=== PATIENT | female | born 1940 | race Asian ===

== ENCOUNTER 2022-12-29 16:26 | Inpatient (IN) | payer OTHER ==
[~2022-12-29] VITALS: Ht 154.9 cm; Wt 49.9 kg
[2022-12-29 16:26] VITALS: BP_SYST 121; PULSE 89; RESP 18; TEMP 98.2; O2SAT 99
[2022-12-29] MEDS ORDERED: LORazepam 2 MG/ML VIAL IM ONE (17:15)
[2022-12-29 17:31] LABS: BASOPHILS % (AUTO) 0.2 % (0.0-2.0); EOSINOPHILS # (AUTO) 0.2 K/uL (0.0-0.4); EOSINOPHILS % (AUTO) 3.3 % (0.0-4.0); HEMATOCRIT 36.2 % (36-48); HEMOGLOBIN 12.2 g/dL (12.0-16.0); LYMPHOCYTES # (AUTO) 2.1 K/uL (1.0-5.5); MEAN CORPUSCULAR HEMOGLOBIN 31 pg (27-31); MEAN CORPUSCULAR HGB CONC 34 % (32-36); MEAN CORPUSCULAR VOLUME 92 fL (79.0-98.0); MONOCYTES # (AUTO) 0.6 K/uL (0.0-1.0); NEUTROPHILS # (AUTO) 4.2 K/uL (1.8-7.7); NEUTROPHILS % (AUTO) 58.5 % (40.0-70.0); PLATELET COUNT (AUTO) 254 K/uL (130-430); RED BLOOD CELL COUNT(AUTO) 3.92 MIL/uL (4.2-6.2); RED CELL DISTRIBUTION WIDTH 13.4 % (9.0-15.0); WHITE BLOOD COUNT (AUTO) 7.1 K/uL (4.8-10.8)
[2022-12-29] MEDS ORDERED: INSU100V53 SQ (17:34)
[2022-12-29] MEDS ORDERED: MAGN200T9 PO (17:34)
[2022-12-29] MEDS ORDERED: ACET-73 PO (17:34)
[2022-12-29] MEDS ORDERED: INSU100V7 SUBCUT (17:34)
[2022-12-29] MEDS ORDERED: FLEETMO RC (17:34)
[2022-12-29] MEDS ORDERED: LACT1TAB14 PO (17:34)
[2022-12-29] MEDS ORDERED: LORA-258 PO (17:34)
[2022-12-29] MEDS ORDERED: DONE10TA44 PO (17:34)
[2022-12-29] MEDS ORDERED: ONDA-8 TL (17:34)
[2022-12-29] MEDS ORDERED: GLUC1VIA4 IM (17:34)
[2022-12-29] MEDS ORDERED: GLUCOSE PO (17:34)
[2022-12-29] MEDS ORDERED: MOM PO (17:34)
[2022-12-29] MEDS ORDERED: ASCO500T20 PO (17:34)
[2022-12-29] MEDS ORDERED: BISACODYL PR (17:34)
[2022-12-29] MEDS ORDERED: MULT-1089 PO (17:34)
[2022-12-29] MEDS ORDERED: AMIN30LI2 PO (17:34)
[2022-12-29] MEDS ORDERED: VITD400 PO (17:34)
[2022-12-29] MEDS ORDERED: DOCU-156 PO (17:34)
[2022-12-29 17:38] LABS: ANION GAP 9 (5-15); CALCIUM 8.5 mg/dL (8.4-11.0); CHLORIDE 106 mmol/L (98-107); CREATININE 0.87 mg/dL (0.55-1.30); GLUCOSE 84 mg/dL (70-99); UREA NITROGEN, BLOOD 27 mg/dL (8-21)
[2022-12-29 17:45] LABS: ALANINE AMINOTRANSFERASE 18 U/L (12-78); ASPARTATE AMINOTRANSFERASE 17 U/L (10-37); TOTAL BILIRUBIN 0.3 mg/dL (0.0-1.0)
[2022-12-29] MEDS ORDERED: cefTRIAXone 1 GM IVPB PREMIX 50 ML IV ONE (18:15)
[2022-12-29 20:00] VITALS: BP_SYST 141; PULSE 87; RESP 18; TEMP 97.1; O2SAT 98
[2022-12-29 21:48] VITALS: BP_SYST 141; PULSE 87; RESP 18; TEMP 97.1
[2022-12-29 22:14] VITALS: O2SAT 98
[2022-12-29] MEDS ORDERED: ACETAMINOPHEN 500 MG TABLET PO PRN ×2 (22:30)
[2022-12-29] MEDS ORDERED: MILK OF MAGNESIA 30 ML UDC PO PRN (22:30)
[2022-12-29] MEDS ORDERED: MINERAL OIL 133 ML ENEMA RC PRN (22:30)
[2022-12-29] MEDS ORDERED: LORazepam 1 MG TABLET PO PRN (22:30)
[2022-12-29] MEDS ORDERED: INSULIN REGULAR, HUMAN 100 UNITS/ML, 3 ML VIAL (humuLIN R) SUBCUT PRN (22:45)
[2022-12-29] MEDS ORDERED: GLUCAGON,HUMAN RECOMBINANT 1 MG VIAL IM PRN (22:45)
[2022-12-29] MEDS ORDERED: AZITHROMYCIN 500 MG/VIAL (ZITHROMAX) IV ONE (22:58)
[2022-12-29] MEDS: AZITHROMYCIN 500 MG in NS 250 ML IV SCH (23:22)
[2022-12-30 00:46] VITALS: BP_SYST 151; PULSE 95; RESP 17; TEMP 96.5; O2SAT 99
[2022-12-30 05:59] LABS: BASOPHILS % (AUTO) 0.4 % (0.0-2.0); EOSINOPHILS # (AUTO) 0.2 K/uL (0.0-0.4); EOSINOPHILS % (AUTO) 2.7 % (0.0-4.0); HEMATOCRIT 36.2 % (36-48); LYMPHOCYTES # (AUTO) 2.1 K/uL (1.0-5.5); LYMPHOCYTES % (AUTO) 31.4 % (20.5-51.5); MEAN CORPUSCULAR HEMOGLOBIN 31 pg (27-31); MEAN CORPUSCULAR HGB CONC 33 % (32-36); MEAN CORPUSCULAR VOLUME 93 fL (79.0-98.0); MONOCYTES # (AUTO) 0.4 K/uL (0.0-1.0); MONOCYTES % (AUTO) 6.1 % (1.7-9.3); NEUTROPHILS % (AUTO) 59.4 % (40.0-70.0); PLATELET COUNT (AUTO) 253 K/uL (130-430); RED CELL DISTRIBUTION WIDTH 13.3 % (9.0-15.0); WHITE BLOOD COUNT (AUTO) 6.7 K/uL (4.8-10.8)
[2022-12-30 06:16] LABS: ANION GAP 8 (5-15); CHLORIDE 109 mmol/L (98-107); CREATININE 0.81 mg/dL (0.55-1.30); GLUCOSE 96 mg/dL (70-99); UREA NITROGEN, BLOOD 20 mg/dL (8-21)
[2022-12-30 06:21] LABS: ALANINE AMINOTRANSFERASE 16 U/L (12-78); ASPARTATE AMINOTRANSFERASE 18 U/L (10-37); TOTAL BILIRUBIN 0.5 mg/dL (0.0-1.0)
[2022-12-30] MEDS ORDERED: NON-FORMULARY MEDICATION (Amino Acids/Protein Hydrolys (Pro-Stat Liquid) 30 ML) PO SCH (09:00)
[2022-12-30 11:14] VITALS: BP_SYST 135; PULSE 69; RESP 16; TEMP 98.1; O2SAT 96
[2022-12-30] MEDS: DOCUSATE SODIUM 100 MG CAPSULE PO SCH (11:59)
[2022-12-30] MEDS: CHOLECALCIFEROL (VITAMIN D-3) 400 UNIT TABLET PO SCH (11:59)
[2022-12-30] MEDS: MULTIVITAMINS TAB 1 TABLET PO SCH (11:59)
[2022-12-30] MEDS: LACTOBACILLUS RHAMNOSUS GG 1 CAP CAPSULE PO SCH ×2 (11:59→21:46)
[2022-12-30] MEDS: ASCORBIC ACID 500 MG TABLET PO SCH (11:59)
[2022-12-30] MEDS: METOPROLOL TARTRATE 25 MG TABLET PO SCH ×2 (12:00→21:46)
[2022-12-30] MEDS: ASPIRIN 81 MG TAB.CHEW PO SCH (12:00)
[2022-12-30] MEDS: MAGNESIUM OXIDE 400 MG TABLET PO SCH (12:01)
[2022-12-30] MEDS: INSULIN GLARGINE 100 UNITS/ML, 10 ML VIAL SQ SCH ×2 (12:06→21:50)
[2022-12-30 12:42] VITALS: O2SAT 100
[2022-12-30 15:01] VITALS: BP_SYST 140; PULSE 83; RESP 16; TEMP 97.2; O2SAT 93
[2022-12-30 20:00] VITALS: BP_SYST 115; PULSE 90; RESP 18; TEMP 97.1; O2SAT 98
[2022-12-30] MEDS ORDERED: DONEPEZIL HCL 5 MG TABLET (ARICEPT) PO SCH (21:00)
[2022-12-30] MEDS ORDERED: ENOXAPARIN SODIUM 40 MG/0.4 ML SYRINGE SUBCUT SCH (21:00)
[2022-12-30] MEDS ORDERED: cefTRIAXone 1 GM in D5W 50 ML IV SCH (21:00)
[2022-12-30] MEDS: AZITHROMYCIN 500 MG in NS 250 ML IV SCH (22:59)
[2022-12-31 00:32] VITALS: BP_SYST 116; PULSE 81; RESP 16; TEMP 97.7; O2SAT 98
[2022-12-31 08:00] VITALS: BP_SYST 118; PULSE 63; RESP 18; TEMP 97.1; O2SAT 93
[2022-12-31] MEDS: INSULIN GLARGINE 100 UNITS/ML, 10 ML VIAL SQ SCH (09:00)
[2022-12-31] MEDS: MAGNESIUM OXIDE 400 MG TABLET PO SCH (09:22)
[2022-12-31] MEDS: LACTOBACILLUS RHAMNOSUS GG 1 CAP CAPSULE PO SCH (09:22)
[2022-12-31] MEDS: METOPROLOL TARTRATE 25 MG TABLET PO SCH (09:23)
[2022-12-31] MEDS: ASCORBIC ACID 500 MG TABLET PO SCH (09:23)
[2022-12-31] MEDS: ASPIRIN 81 MG TAB.CHEW PO SCH (09:23)
[2022-12-31] MEDS: DOCUSATE SODIUM 100 MG CAPSULE PO SCH (09:23)
[2022-12-31] MEDS: CHOLECALCIFEROL (VITAMIN D-3) 400 UNIT TABLET PO SCH (09:23)
[2022-12-31] MEDS: MULTIVITAMINS TAB 1 TABLET PO SCH (09:23)
[2022-12-31 11:23] VITALS: BP_SYST 106; PULSE 83; RESP 15; TEMP 97; O2SAT 95
[2022-12-31 14:38] VITALS: BP_SYST 106; PULSE 83; RESP 18; TEMP 97; O2SAT 95
[2022-12-31 15:16] VITALS: BP_SYST 110; PULSE 76; RESP 16; TEMP 97.7; O2SAT 94
== END 2022-12-31 19:40 | disposition short-term general hospital (02) | DRG 194 ==
LOC: SED 16:26 → SMU 18:26
PROVIDERS: ADMIT Family Medicine; ATTEND Family Medicine
DX: J18.9 Pneumonia, unspecified organism (principal); E44.1 Mild protein-calorie malnutrition; I10 Essential (primary) hypertension; F03.A0 Unspecified dementia, mild, without behavioral disturbance, psychotic disturbance, mood disturbance, and anxiety; E11.9 Type 2 diabetes mellitus without complications; D64.9 Anemia, unspecified; R07.89 Other chest pain; Z68.20 Body mass index [BMI] 20.0-20.9, adult
CPT/HCPCS: 36415; 71045; 80053; 83605; 83735; 83880; 84484; 85025; 87040; 87081; 93005; 96365; 96372; 99285; J0456; J0696; J1650; J1815; J2060; J7050; J7060